=== PATIENT | female | born 1975 | race Two or more races ===

== ENCOUNTER 2024-03-27 18:57 | Emergency (ER) | payer BC, OTHER ==
[~2024-03-27] VITALS: Ht 165.1 cm; Wt 100.0 kg
[2024-03-27 20:21] LABS: Chloride 104 mmol/L (98-107); Potassium 3.3 mmol/L (3.5-5.1); Sodium 140 mmol/L (136-145)
[2024-03-27 20:22] LABS: Anion Gap 11 (5-15); Basophils # (auto) 0 10 ^3/uL (0-0.2); Basophils % (auto) 0.7 % (0.0-2.0); Calcium 9.8 mg/dL (8.7-10.4); Carbon Dioxide 25 mmol/L (20-30); Eosinophils # (auto) 0 10 ^3/uL (0-0.8); Eosinophils % (auto) 0.4 % (0.0-7.0); Hematocrit 37.2 % (36.0-46.0); Lymphocytes # (auto) 1.5 10 ^3/uL (0.4-5.4); Mean Corpuscular Hemoglobin 31.2 pg (28.0-32.0); Mean Corpuscular Volume 89.3 fL (80.0-100.0); Monocytes # (auto) 0.3 10 ^3/uL (0-1.3); Monocytes % (auto) 6.9 % (0.0-12.0); Neutrophils # (auto) 2.2 10 ^3/uL (1.6-8.6); Nucleated Red Blood Cells % 0.2 %; Red Blood Cells 4.17 10^6/uL (4.0-5.20); Red Cell Distribution Width 12.8 % (11.8-14.3)
[2024-03-27 20:27] LABS: BUN/Creatinine Ratio 14.1 (10.0-20.0); Blood Urea Nitrogen 12 mg/dL (9-23); Glucose 106 mg/dL (74-106)
[2024-03-27 21:41] VITALS: TEMP 98.2
[2024-03-27] MEDS: HYDROmorphone HCL 2 MG/ML VL/or syr IM ONE (21:41)
[2024-03-27 22:18] LABS: Urine Bacteria FEW /hpf (None Seen); Urine Blood Negative /uL (Negative); Urine Clarity Clear (Clear); Urine Color Colorless (Yellow); Urine Protein, UAD Negative (Negative); Urine Specific Gravity 1.011 (1.001-1.035); Urine Urobilinogen Normal (Negative); Urine WBC 1 /hpf (0 - 5)
[2024-03-27 22:34] VITALS: BP 136/79; PULSE 64; RESP 18; O2SAT 96
[2024-03-27] MEDS ORDERED: IBUP-1455 PO (22:52)
[2024-03-27] MEDS ORDERED: DOCU-94 PO (22:52)
[2024-03-27] MEDS ORDERED: PERCOT PO (22:58)
[2024-03-27] MEDS: OXYCODONE W/ ACETAMINOPHEN 5/325MG TABLET PO ONE (23:14)
== END 2024-03-27 23:20 | disposition home or self-care (01) ==
LOC: ER 18:57
DX: M51.17 Intervertebral disc disorders with radiculopathy, lumbosacral region (principal); M54.59 Other low back pain; Z79.1 Long term (current) use of non-steroidal anti-inflammatories (NSAID)
CPT/HCPCS: 36415; 70450; 72125; 72131; 80048; 81001; 85025; 96372; 99285; J1170